=== PATIENT | male | born 2000 | race Two or more races ===

== ENCOUNTER 2023-03-09 10:15 | Inpatient (IN) | payer SELFPAY ==
[~2023-03-09] VITALS: Ht 170.2 cm; Wt 116.0 kg
[2023-03-09 12:09] LABS: Basophils # (auto) 0 10 ^3/uL (0-0.2); Basophils % (auto) 0.3 % (0.0-2.0); Eosinophils # (auto) 0.3 10 ^3/uL (0-0.8); Eosinophils % (auto) 2.4 % (0.0-7.0); Hematocrit 42.4 % (41.0-53.0); Hemoglobin 14.2 g/dL (13.5-17.5); Lymphocytes # (auto) 2.2 10 ^3/uL (0.4-5.4); Lymphocytes % (auto) 19.2 % (10.0-50.0); Mean Corpuscular Hemoglobin 30.7 pg (28.0-32.0); Mean Corpuscular Hgb Conc. 33.6 g/dL (32.0-36.0); Mean Corpuscular Volume 91.5 fL (80.0-100.0); Monocytes % (auto) 9.2 % (0.0-12.0); Neutrophils # (auto) 7.9 10 ^3/uL (1.6-8.6); Neutrophils % (auto) 68.9 % (37.0-80.0); Red Blood Cells 4.63 10^6/uL (4.5-5.90); White Blood Cell 11.4 10^3/uL (4.4-10.8)
[2023-03-09 12:25] LABS: Chloride 105 mmol/L (98-107); Potassium 3.8 mmol/L (3.5-5.1); Sodium 139 mmol/L (136-145)
[2023-03-09 12:26] LABS: Anion Gap 6 (5-15); Carbon Dioxide 28 mmol/L (20-30)
[2023-03-09 12:27] LABS: Calcium 9.4 mg/dL (8.5-10.1)
[2023-03-09] MEDS: ceFAZolin 1GM/50ML 50 ML IV ONE (12:30)
[2023-03-09] MEDS: SODIUM CHLORIDE 0.9% 1,000 ML IV SCH (12:30)
[2023-03-09 12:31] LABS: Glucose 92 mg/dL (74-106)
[2023-03-09 12:32] LABS: BUN/Creatinine Ratio 14.3 (10.0-20.0); Blood Urea Nitrogen 11 mg/dL (9-23)
[2023-03-09 12:34] LABS: INR 1.03 (0.9-1.15); Partial Thromboplastin Time 32.8 SEC (24.5-34.5); Prothrombin Time 10.8 sec (9.3-11.8)
[2023-03-09 12:40] VITALS: PULSE 78; RESP 16; O2SAT 98
[2023-03-09] MEDS ORDERED: LIDOCAINE 2% JELLY 11ml (GLYDO) ONE (12:40)
[2023-03-09] MEDS ORDERED: BUPIVACAINE 0.25% INJ 50ML VIAL ONE (12:40)
[2023-03-09] MEDS ORDERED: NEOMYCIN-BACITRACIN-POLYM 15GM TOP OINT TOP ONE (12:45)
[2023-03-09] MEDS ORDERED: LIDOCAINE W/ EPINEPHRINE 1% 20ML VIAL ONE (12:45)
[2023-03-09] MEDS ORDERED: ceFAZolin 2 GM/D5W100ml 100 ML IV ONE (12:56)
[2023-03-09] MEDS ORDERED: fentaNYL CITRATE 100 MCG/2 ML VL ONE ×2 (13:10→13:35)
[2023-03-09] MEDS ORDERED: MEPERIDINE HCL (50 MG/ML) 1 ML VIAL ONE (13:20)
[2023-03-09] MEDS ORDERED: ONDANSETRON HCL 4 MG/2 ML VIAL ONE ×2 (13:20→15:05)
[2023-03-09] MEDS ORDERED: DexAMETHasone SOD PHOS 10MG/1ML VIAL INJ ONE (13:20)
[2023-03-09] MEDS: ceFAZolin 1GM/50ML 50 ML IV SCH (14:00)
[2023-03-09 14:05] VITALS: O2SAT 89
[2023-03-09] MEDS ORDERED: MEPERIDINE HCL (25 MG/ML) 1ML VIAL IV PRN (14:30)
[2023-03-09] MEDS: ONDANSETRON HCL 4 MG/2 ML VIAL IV PRN (15:09)
[2023-03-09] MEDS ORDERED: HYDROmorphone HCL 2 MG/ML VL/or syr ONE (15:20)
[2023-03-09] MEDS: HYDROmorphone HCL 2 MG/ML VL/or syr IV PRN (15:23)
[2023-03-09] MEDS: MORPHINE SULFATE INJ 2 MG/ml SYRG IV PRN (17:57)
[2023-03-09 18:10] VITALS: PULSE 70; RESP 18; O2SAT 98
[2023-03-09 20:00] VITALS: O2SAT 96
[2023-03-09] MEDS: HYDROcodone-ACET 5/325MG TAB PO ONE (21:52)
[2023-03-09 22:00] VITALS: BP 132/72; PULSE 84; RESP 18; TEMP 97.8; O2SAT 96
[2023-03-09] MEDS ORDERED: TEMAZEPAM 15 MG CAP PO PRN (22:30)
[2023-03-10 05:00] VITALS: BP 127/86; PULSE 88; RESP 18; TEMP 98.7; O2SAT 96
[2023-03-10 05:13] LABS: Basophils # (auto) 0 10 ^3/uL (0-0.2); Eosinophils # (auto) 0 10 ^3/uL (0-0.8); Hematocrit 39.7 % (41.0-53.0); Hemoglobin 13.6 g/dL (13.5-17.5); Lymphocytes % (auto) 7.2 % (10.0-50.0); Mean Corpuscular Hemoglobin 30.8 pg (28.0-32.0); Mean Corpuscular Hgb Conc. 34.3 g/dL (32.0-36.0); Mean Corpuscular Volume 89.8 fL (80.0-100.0); Monocytes # (auto) 1.1 10 ^3/uL (0-1.3); Monocytes % (auto) 7.6 % (0.0-12.0); Neutrophils % (auto) 85.2 % (37.0-80.0); Red Blood Cells 4.43 10^6/uL (4.5-5.90); Red Cell Distribution Width 12.9 % (11.8-14.3); White Blood Cell 14.1 10^3/uL (4.4-10.8)
[2023-03-10 05:19] LABS: Alanine Aminotransferase 12 U/L (7-40); Albumin 4.2 g/dL (3.2-4.8); Alkaline Phosphatase 66 U/L (46-116); Anion Gap 6 (5-15); Aspartate Aminotransferase 14 U/L (13-40); BUN/Creatinine Ratio 11.1 (10.0-20.0); Blood Urea Nitrogen 7 mg/dL (9-23); Calcium 9.1 mg/dL (8.5-10.1); Carbon Dioxide 25 mmol/L (20-30); Chloride 107 mmol/L (98-107); Glucose 117 mg/dL (74-106); Potassium 3.8 mmol/L (3.5-5.1); Sodium 138 mmol/L (136-145)
[2023-03-10 05:20] LABS: Bilirubin, Total 0.6 mg/dL (0.2-1.0); Total Protein 7.5 g/dL (5.7-8.2)
[2023-03-10] MEDS ORDERED: CALCIUM CARB 500 MG CHEW TAB PO PRN (06:15)
[2023-03-10 08:15] VITALS: BP 109/54; PULSE 80; RESP 18; TEMP 98.5; O2SAT 97
[2023-03-10] MEDS ORDERED: AMOX600S PO (09:28)
[2023-03-10] MEDS ORDERED: AUG875T PO ×2 (09:31→09:36)
[2023-03-10 09:39] VITALS: BP 109/54; PULSE 80; RESP 18; TEMP 98.5; O2SAT 97
[2023-03-10] MEDS ORDERED: DOXY-286 PO (10:42)
[2023-03-10] MEDS ORDERED: HYDR-4902 PO (11:28)
== END 2023-03-10 14:09 | disposition home or self-care (01) | DRG 712 ==
LOC: ER 10:15 → UNDOADMIN 12:26 → OVERFLOW 12:26 → EAST 17:38
PROVIDERS: ADMIT Internal Medicine; ATTEND Emergency Medicine
PROC: 0VBB0ZZ Excision of Left Testis, Open Approach (ICD-10-PCS; principal; 2023-03-09 13:10)
PROC: 0VQ90ZZ Repair Right Testis, Open Approach (ICD-10-PCS; 2023-03-09 13:10)
DX: N44.00 Torsion of testis, unspecified (principal)
CPT/HCPCS: 36415; 76870; 80048; 80053; 85025; 85610; 85730; G0378; J1100; J2405; J3490

== ENCOUNTER 2023-05-27 20:11 | Emergency (ER) | payer BC, OTHER ==
[~2023-05-27] VITALS: Ht 165.1 cm; Wt 175.5 kg
[~2023-05-27 20:11] MED LIST: DOXY-286 PO; HYDR-4902 PO
[2023-05-27 20:59] LABS: Urine Bacteria None Seen /hpf (None Seen)
[2023-05-27 21:18] LABS: Basophils # (auto) 0.1 10 ^3/uL (0-0.2); Basophils % (auto) 0.5 % (0.0-2.0); Eosinophils # (auto) 0.4 10 ^3/uL (0-0.8); Eosinophils % (auto) 3.2 % (0.0-7.0); Hematocrit 42.2 % (41.0-53.0); Hemoglobin 14.2 g/dL (13.5-17.5); Lymphocytes # (auto) 2.4 10 ^3/uL (0.4-5.4); Lymphocytes % (auto) 21.6 % (10.0-50.0); Mean Corpuscular Hemoglobin 30.1 pg (28.0-32.0); Mean Corpuscular Hgb Conc. 33.6 g/dL (32.0-36.0); Mean Corpuscular Volume 89.6 fL (80.0-100.0); Monocytes # (auto) 0.8 10 ^3/uL (0-1.3); Monocytes % (auto) 7.3 % (0.0-12.0); Neutrophils # (auto) 7.5 10 ^3/uL (1.6-8.6); Neutrophils % (auto) 67.4 % (37.0-80.0); Red Blood Cells 4.71 10^6/uL (4.5-5.90); Red Cell Distribution Width 13.5 % (11.8-14.3); White Blood Cell 11.1 10^3/uL (4.4-10.8)
[2023-05-27 21:26] LABS: Urine Blood Negative /uL (Negative); Urine Clarity Clear (Clear); Urine Color Light-Yellow (Yellow); Urine Protein, UAD TRACE (Negative); Urine Specific Gravity 1.031 (1.001-1.035); Urine Urobilinogen Normal (Negative); Urine WBC 1 /hpf (0 - 3); Urine pH 6.5 (5.0-9.0)
[2023-05-27 21:26] LABS: Chloride 105 mmol/L (98-107); Potassium 3.6 mmol/L (3.5-5.1); Sodium 139 mmol/L (136-145)
[2023-05-27 21:27] LABS: Anion Gap 9 (5-15); Carbon Dioxide 25 mmol/L (20-30)
[2023-05-27 21:32] LABS: BUN/Creatinine Ratio 13.1 (10.0-20.0); Blood Urea Nitrogen 11 mg/dL (9-23); Glucose 93 mg/dL (74-106)
[2023-05-27] MEDS: IBUPROFEN 800 MG TAB PO ONE (23:15)
[2023-05-27] MEDS: cefTRIAXone SOD 1,000 MG VL IM ONE (23:15)
[2023-05-27] MEDS ORDERED: IBUP-1456 PO (23:19)
[2023-05-27] MEDS ORDERED: DOXY-346 PO (23:19)
[2023-05-28 02:20] VITALS: BP 131/80; PULSE 78; RESP 16; TEMP 98.1; O2SAT 100
== END 2023-05-28 02:22 | disposition home or self-care (01) ==
LOC: ER 20:11
DX: N50.811 Right testicular pain (principal); Z98.890 Other specified postprocedural states; Z79.899 Other long term (current) drug therapy
CPT/HCPCS: 36415; 76870; 80048; 81001; 85025; 96372; 99285; J0696

== ENCOUNTER 2023-08-02 16:16 | Emergency (ER) | payer BC ==
[~2023-08-02] VITALS: Ht 165.1 cm; Wt 115.0 kg
[~2023-08-02 16:16] MED LIST changes: +DOXY-346 PO; +IBUP-1456 PO
[2023-08-02 16:17] VITALS: BP_SYST 132
[2023-08-02 18:29] VITALS: BP_DIAS 132; PULSE 91; RESP 16; TEMP 98.9; O2SAT 96
[2023-08-02] MEDS: KETOROLAC TROMETH 30 MG/ML 1ML VIAL IM ONE (19:02)
[2023-08-02] MEDS ORDERED: BACDST PO (21:08)
== END 2023-08-02 21:08 | disposition home or self-care (01) ==
LOC: ER 16:16
DX: N50.811 Right testicular pain (principal); R22.1 Localized swelling, mass and lump, neck; Z98.890 Other specified postprocedural states; Z79.899 Other long term (current) drug therapy
CPT/HCPCS: 70490; 76870; 96372; 99285; J1885